=== PATIENT | male | born 1945 | race Caucasian/White ===

== ENCOUNTER 2019-01-25 07:21 | Emergency (ER) | payer MEDICARE ==
[2019-01-25 07:52] LABS: #Eosinphils 0.2 thou/uL (0.0-0.7); #Lymphocytes 2.3 thou/uL (1.20-3.40); #Monocytes 0.9 thou/uL (0.11-0.59); #Neutrophils 5.1 thou/uL (1.40-6.50); %Basophils 0.2 % (0.0-1.0); %Eosinophils 2.7 % (0.0-10.0); %Lymphocytes 26.8 % (21.0-51.0); %Monocytes 10.8 % (0.0-10.0); %Neutrophils 59.5 % (42.0-75.0); Hemoglobin 13.9 g/dL (14.0-18.0); Mean Corpuscular HGB CONC 33.4 g/dL (32.0-36.0); Mean Corpuscular Hemoglobin 29.6 pg (27.0-31.0); Mean Corpuscular Volume 88.6 fL (78.0-98.0); Mean Platelet Volume 8.7 fL (7.4-10.4); Platelet Count 169 thou/uL (130-400); Red Blood Cell (RBC) Count 4.69 mill/uL (4.70-6.10); White Blood Cell (WBC) Count 8.6 thou/uL (4.8-10.8)
[2019-01-25 08:10] LABS: ALT (SGPT) 16 U/L (8-55); AST (SGOT) 24 U/L (5-34); Albumin 3.8 g/dL (3.4-4.8); Alkaline Phosphatase 72 U/L (40-150); Anion Gap 12 mmol/L (10-20); BUN (Urea Nitrogen) 11 mg/dL (8.4-25.7); Bilirubin, Total 0.7 mg/dL (0.2-1.2); Calc. Creatinine Clearance 0 mL/min (70-130); Calcium 8.7 mg/dL (7.8-10.44); Carbon Dioxide 27 mmol/L (23-31); Chloride 100 mmol/L (98-107); Estimated GFR-MDRD 58; Globulin 3.2 g/dL (2.4-3.5); Glucose 126 mg/dL (83-110); Potassium 3.4 mmol/L (3.5-5.1); Sodium 136 mmol/L (136-145)
[2019-01-25] MEDS ORDERED: Acetaminophen 500 MG TAB ONE (08:50)
--- NOTE | 2019-01-25 09:07 | RAD ---
PORTABLE CHEST: Date: 01/25/19 HISTORY: Vomiting, diarrhea. FINDINGS: Lungs appear clear. No infiltrate identified. No evidence of effusion. Heart and mediastinum unremark able. IMPRESSION: No acute process. POS: OFF
--- NOTE | 2019-01-25 11:18 | CT ---
CT ABDOMEN PELVIS WITH ORAL AND IV CONTRAST: HISTORY: Nausea, vomiting, diarrhea. COMPARISON: None FINDINGS: There are mild dependent changes in the lung bases. A 12 mm cyst is seen in the dome of the liver. Th e spleen measures 13.7 cm in AP dimension. The pancreas, left adrenal gland and kidneys appear normal. There is a 2.8 cm indeterminate right adrenal mass. No free air, free fluid or lymphadenopathy seen in the abdomen or pelvis. There are vascular calcific ations without evidence of abnormal dilatation of the abdominal aorta. Degenerative changes are present in the spine. The small bowel loops are not abnormally dilated. A normal-appearing appendix is present. There is co lonic diverticulosis. There is thickening of the colonic wall with adjacent inflammatory changes surrounding the descending and sigmoid colon. No abnormally loculated fluid collection is seen to sug gest abscess formation. There are small bilateral fat-containing inguinal hernia. IMPRESSION: 1. Hepatic cyst 2. Mild splenomegaly 3. Indeterminate right adrenal mass. Dedicated CT scan using the adrenal protocol is recommended. 4. Colonic diverticulosis with diverticulitis in the descending and sigmoid colon.
[2019-01-25] MEDS ORDERED: ISOVUE-370 76%-LOCM 1 ML ONE (11:29)
== END 2019-01-25 11:55 | disposition home or self-care (01) ==
LOC: ERS 07:21
DX: I95.9 Hypotension, unspecified (principal); R19.7 Diarrhea, unspecified; Z79.899 Other long term (current) drug therapy
CPT/HCPCS: 71045; 74177; 80053; 83690; 85025; 93005; 96360; 96361; Q9966